=== PATIENT | female | born 1975 | race Caucasian/White ===

== ENCOUNTER 2018-07-31 20:40 | Emergency (ER) | payer BC, OTHER ==
[2018-07-31 20:57] VITALS: BP 117/86
[2018-07-31] MEDS ORDERED: Ondansetron 4 MG/2 ML SDV IVPUSH ONE (21:11)
[2018-07-31] MEDS ORDERED: HYDROmorphone 1 MG/ML Syringe IVPUSH STA (21:11)
[2018-07-31] MEDS ORDERED: Sodium Chloride 0.9% 10 ML Syringe FLUSH PRN (21:12)
[2018-07-31] MEDS ORDERED: Sodium Chloride 0.9% 1,000 ML IV SCH (21:15)
--- NOTE | 2018-07-31 21:19 | EDM.PDOC ---
ED HPI GENERAL MEDICAL PROBLEM - General Chief Complaint: Abdominal Pain Stated Complaint: abdominal pain Time Seen by Provider: 07/31/18 21:00 Source of Information: Reports: Patient, RN Notes Reviewed History Limitations: Reports: No Limitations - History of Present Illness INITIAL COMMENTS - FREE TEXT/NARRATIVE: Patient is a 43-year-old female who presents to the ED today for the evaluation of abdominal pain. She states that this pain awakened her from sleep at around 4 AM this morning and has continued throughout the day and has subsequently gotten worse. She states that the pain started around her bellybutton area and has migrated to her lower abdomen. She would rate this pain at a 7 or 8 out of 10 and kind of comes and goes in waves she states that curling up in a ball makes this feel better. She notes this pain to be a sharp, stabbing abdominal pain. She does note some pain into her low back as well. She denies any fever/ chills, dysuria, but does relate some urinary frequency. She states she does feel some mild nausea and did vomit one time around lunch after she had tried to eat some soup. She states that she had a normal bowel movement for her this a.m. as well. She denies any history of diverticulitis, she has not had any abdominal surgeries so she still retains her appendix, gallbladder, and she still has her uterus and both ovaries. She is still menstruating and does not have any issues related to this. She states that she did have some antacids for pain relief this morning. She notes that she recently got braces one week ago and has been eating a lot of soft type foods. Lower Abdominal Pain Score (Numeric/FACES): 8 - Related Data Allergies Allergy/AdvReac Type Severity Reaction Status Date / Time morphine Allergy Itching Verified 12/11/14 12:25 Home Meds: Home Meds Levothyroxine 75 mcg PO ACBREAKFAST 12/11/14 [History] Past Medical History Endocrine/Metabolic History: Reports: Other (See Below) Other Endocrine/Metabolic History: partail thyroidectomy - Past Surgical History Other Female Surgeries/Procedures: bladder surgery Social & Family History - Tobacco Use Smoking Status *Q: Never Smoker - Caffeine Use Caffeine Use: Reports: Soda - Recreational Drug Use Recreational Drug Use: No ED ROS GENERAL - Review of Systems Review Of Systems: See Below Constitutional: Reports: Decreased Appetite. Denies: Fever, Chills HEENT: Reports: No Symptoms Respiratory: Reports: No Symptoms Cardiovascular: Reports: No Symptoms Endocrine: Reports: No Symptoms GI/Abdominal: Reports: Abdominal Pain (lower), Decreased Appetite, Nausea, Vomiting. Denies: Constipation, Diarrhea : Reports: Frequency. Denies: Dysuria, Flank Pain, Urgency Musculoskeletal: Reports: Back Pain (lower back) Skin: Reports: No Symptoms Neurological: Reports: No Symptoms Psychiatric: Reports: No Symptoms Hematologic/Lymphatic: Reports: No Symptoms Immunologic: Reports: No Symptoms ED EXAM, GI/ABD - Physical Exam Exam: See Below Exam Limited By: No Limitations General Appearance: Alert, WD/WN, No Apparent Distress (Patient has her knees drawn up to her chest and appears to be in mild pain.) Eyes: Bilateral: Normal Appearance Ears: Normal External Exam Nose: Normal Inspection Throat/Mouth: Normal Inspection, Normal Lips, Normal Teeth, Normal Oropharynx, Normal Voice, No Airway Compromise Head: Atraumatic, Normocephalic Neck: Normal Inspection Respiratory/Chest: No Respiratory Distress, Lungs Clear, Normal Breath Sounds, No Accessory Muscle Use, Chest Non-Tender Cardiovascular: Normal Peripheral Pulses, Regular Rate, Rhythm, No Murmur GI/Abdominal Exam: Normal Bowel Sounds, Soft, No Organomegaly, No Distention, Tender (slightly more tender over her RLQ, but tender throughout lower abdomen.) , Mass (small lump noted around R inguinal ring, she noticed this around 1 week ago, but has not bothered her.). No: Guarding, Rigid, Rebound Back Exam: Normal Inspection, Full Range of Motion. No: CVA Tenderness (L), CVA Tenderness (R) Extremities: Normal Inspection, Normal Capillary Refill Neurological: Alert, Oriented, Normal Cognition, Normal Gait, No Motor/Sensory Deficits Psychiatric: Normal Affect, Normal Mood Skin Exam: Warm, Dry, Intact, Normal Color, No Rash Course - Vital Signs Last Recorded V/S: Last Vital Signs Temp 98.2 F 07/31/18 20:56 Pulse 100 07/31/18 20:56 Resp 20 07/31/18 20:56 BP 117/86 07/31/18 20:56 Pulse Ox 97 07/31/18 20:56 - Orders/Labs/Meds Orders: Active Orders 24 hr Category Date Time Status Peripheral IV Care [RC] . DIRECTED Care 07/31/18 21:12 Ordered Abdomen Pelvis w Cont [CT] Stat Exams 07/31/18 21:11 Ordered Sodium Chloride 0.9% [Normal Saline] 1,000 ml Med 07/31/18 21:15 Active IV ASDIRECTED Sodium Chloride 0.9% [Saline Flush] Med 07/31/18 21:12 Ordered 10 ml FLUSH ASDIRECTED PRN Peripheral IV Insertion Adult [OM.PC] Routine Oth 07/31/18 21:12 Ordered Medication Orders Sodium Chloride (Normal Saline) 1,000 mls @ 500 mls/hr IV ASDIRECTED BYRON Last Admin: 07/31/18 21:25 Dose: 500 mls/hr Sodium Chloride (Saline Flush) 10 ml FLUSH ASDIRECTED PRN PRN Reason: Keep Vein Open Last Admin: 07/31/18 21:28 Dose: 10 ml Labs: Laboratory Tests 07/31/18 07/31/18 07/31/18 Range/Units 21:15 21:15 21:20 WBC 7.19 (3.98-10.04) K/mm3 RBC 4.47 (3.98-5.22) M/mm3 Hgb 13.4 (11.2-15.7) gm/L Hct 39.7 (34.1-44.9) % MCV 88.8 (79.4-94.8) fl MCH 30.0 (25.6-32.2) pg MCHC 33.8 (32.2-35.5) g/dl RDW Std Deviation 39.8 (36.4-46.3) fL Plt Count 218 (182-369) K/mm3 MPV 10.6 (9.4-12.3) fl Neutrophils % (Manual) 57 (40-60) % Band Neutrophils % 0 (0-10) % Lymphocytes % (Manual) 26 (20-40) % Atypical Lymphs % 5 % Monocytes % (Manual) 7 (2-10) % Eosinophils % (Manual) 4 (0.7-5.8) % Basophils % (Manual) 1 (0.1-1.2) Platelet Estimate Adequate Plt Morphology Comment Normal RBC Morph Comment Normal Sodium 137 (136-145) mEq/L Potassium 3.4 L (3.5-5.1) mEq/L Chloride 102 (98-107) mEq/L Carbon Dioxide 24 (21-32) mEq/L Anion Gap 14.4 (5-15) BUN 11 (7-18) mg/dL Creatinine 1.0 (0.55-1.02) mg/dL Est Cr Clr Drug Dosing 70.54 mL/min Estimated GFR (MDRD) > 60 (>60) mL/min BUN/Creatinine Ratio 11.0 L (14-18) Glucose 92 (74-106) mg/dL Calcium 8.8 (8.5-10.1) mg/dL Total Bilirubin 0.5 (0.2-1.0) mg/dL AST 17 (15-37) U/L ALT 21 (14-59) U/L Alkaline Phosphatase 64 (46-116) U/L C-Reactive Protein < 0.2 (<1.0) mg/dL Total Protein 7.1 (6.4-8.2) g/dl Albumin 3.9 (3.4-5.0) g/dl Globulin 3.2 gm/dL Albumin/Globulin Ratio 1.2 (1-2) Urine Color Yellow (Yellow) Urine Appearance Clear (Clear) Urine pH 6.5 (5.0-8.0) Ur Specific Lindsay 1.020 (1.005-1.030) Urine Protein Negative (Negative) Urine Glucose (UA) Negative (Negative) Urine Ketones Trace H (Negative) Urine Occult Blood Negative (Negative) Urine Nitrite Negative (Negative) Urine Bilirubin Negative (Negative) Urine Urobilinogen 0.2 (0.2-1.0) Ur Leukocyte Esterase Negative (Negative) Urine RBC 0-5 (0-5) /hpf Urine WBC 0-5 (0-5) /hpf Ur Epithelial Cells 0-5 (0-5) /hpf Urine Bacteria Few (FEW) /hpf Urine Mucus Moderate H (FEW) /hpf Urine HCG, Qual (NEGATIVE) 07/31/18 Range/Units 21:20 WBC (3.98-10.04) K/mm3 RBC (3.98-5.22) M/mm3 Hgb (11.2-15.7) gm/L Hct (34.1-44.9) % MCV (79.4-94.8) fl MCH (25.6-32.2) pg MCHC (32.2-35.5) g/dl RDW Std Deviation (36.4-46.3) fL Plt Count (182-369) K/mm3 MPV (9.4-12.3) fl Neutrophils % (Manual) (40-60) % Band Neutrophils % (0-10) % Lymphocytes % (Manual) (20-40) % Atypical Lymphs % % Monocytes % (Manual) (2-10) % Eosinophils % (Manual) (0.7-5.8) % Basophils % (Manual) (0.1-1.2) Platelet Estimate Plt Morphology Comment RBC Morph Comment Sodium (136-145) mEq/L Potassium (3.5-5.1) mEq/L Chloride (98-107) mEq/L Carbon Dioxide (21-32) mEq/L Anion Gap (5-15) BUN (7-18) mg/dL Creatinine (0.55-1.02) mg/dL Est Cr Clr Drug Dosing mL/min Estimated GFR (MDRD) (>60) mL/min BUN/Creatinine Ratio (14-18) Glucose (74-106) mg/dL Calcium (8.5-10.1) mg/dL Total Bilirubin (0.2-1.0) mg/dL AST (15-37) U/L ALT (14-59) U/L Alkaline Phosphatase (46-116) U/L C-Reactive Protein (<1.0) mg/dL Total Protein (6.4-8.2) g/dl Albumin (3.4-5.0) g/dl Globulin gm/dL Albumin/Globulin Ratio (1-2) Urine Color (Yellow) Urine Appearance (Clear) Urine pH (5.0-8.0) Ur Specific Lindsay (1.005-1.030) Urine Protein (Negative) Urine Glucose (UA) (Negative) Urine Ketones (Negative) Urine Occult Blood (Negative) Urine Nitrite (Negative) Urine Bilirubin (Negative) Urine Urobilinogen (0.2-1.0) Ur Leukocyte Esterase (Negative) Urine RBC (0-5) /hpf Urine WBC (0-5) /hpf Ur Epithelial Cells (0-5) /hpf Urine Bacteria (FEW) /hpf Urine Mucus (FEW) /hpf Urine HCG, Qual Negative (NEGATIVE) Meds: Medications Generic Name Dose Route Start Last Admin Trade Name Freq PRN Reason Stop Dose Admin Sodium Chloride 1,000 mls @ 500 mls/hr 07/31/18 21:15 07/31/18 21:25 Normal Saline IV 500 mls/hr ASDIRECTED BYRON Administration Sodium Chloride 10 ml 07/31/18 21:12 07/31/18 21:28 Saline Flush FLUSH 10 ml ASDIRECTED PRN Administration Keep Vein Open Discontinued Medications Generic Name Dose Route Start Last Admin Trade Name Medardo PRN Reason Stop Dose Admin Hydromorphone HCl 1 mg 07/31/18 21:11 07/31/18 21:27 Dilaudid IVPUSH 07/31/18 21:12 1 mg ONETIME STA Administration Iopamidol 100 ml 07/31/18 22:20 07/31/18 22:37 Isovue-370 (76%) IV 07/31/18 22:21 100 ml ONETIME ONE Administration Ondansetron HCl 4 mg 07/31/18 21:11 07/31/18 21:25 Zofran IVPUSH 07/31/18 21:12 4 mg ONETIME ONE Administration - Re-Assessments/Exams Free Text/Narrative Re-Assessment/Exam: 07/31/18 21:26 Patient presents to the ED for evaluation of abdominal pain. Have ordered a CBC , CMP, UA with qualitative hCG, CRP, abdomen and pelvis CT with contrast and IV fluids with 1 mg IV Dilaudid and 4mg IV Zofran for initial management. 07/31/18 22:19 Patient's labs have returned and are essentially within normal limits, we will await CT results to see if this can provide any direction as to why she is having abdominal pain. 07/31/18 23:04 CT has returned and demonstrates no acute findings in her abdomen or pelvis. Etiology of her pain is undetermined at this time, she may have some stool that is trying to work it's way through the bowel. Will recommend she start herself on stool softeners and take OTC tylenol/ibuprofen for relief, and watchful waiting over the weekend. She will be educated on worrisome signs that would warrant a prompt return to the ED. Departure - Departure Time of Disposition: 23:19 Disposition: Home, Self-Care 01 Condition: Fair Clinical Impression: Lower abdominal pain - Discharge Information *PRESCRIPTION DRUG MONITORING PROGRAM REVIEWED*: No *COPY OF PRESCRIPTION DRUG MONITORING REPORT IN PATIENT MEGHAN: No Instructions: Abdominal Pain, Adult, [id number] Referrals: Rashmi Silvestre NP [Primary Care Provider] - Forms: ED Department Discharge Additional Instructions: You have been evaluated in the ED tonight for your lower abdominal pain. Your workup in the ER which included laboratory evaluation and radiologic evaluation of your abdomen was within normal limits. There is no definitive reason as to why you are having abdominal pain at this time. You do not have appendicitis, diverticulitis, urinary tract infection, or other infectious etiology that would be worrisome at this point in time. If however you should develop fever/chills or increasing/worsening pain of your lower abdomen please seek re-evaluation as this is cause for concern. You may take 500 mg Tylenol or 600 mg ibuprofen every 6 hours as needed for pain relief, do not take over 4000 mg of Tylenol or 3200 mg of ibuprofen in a 24 -hour time span. Recommend that you increase your oral fluid intake, and stick to a soft diet as tolerated. Please return to the ED if your symptoms change or worsen. - My Orders Last 24 Hours: My Active Orders 07/31/18 21:11 Abdomen Pelvis w Cont [CT] Stat 07/31/18 21:12 Peripheral IV Care [RC] . DIRECTED Sodium Chloride 0.9% [Saline Flush] 10 ml FLUSH ASDIRECTED PRN Peripheral IV Insertion Adult [OM.PC] Routine 07/31/18 21:15 Sodium Chloride 0.9% [Normal Saline] 1,000 ml IV ASDIRECTED - Assessment/Plan Last 24 Hours: My Active Orders 07/31/18 21:11 Abdomen Pelvis w Cont [CT] Stat 07/31/18 21:12 Peripheral IV Care [RC] . DIRECTED Sodium Chloride 0.9% [Saline Flush] 10 ml FLUSH ASDIRECTED PRN Peripheral IV Insertion Adult [OM.PC] Routine 07/31/18 21:15 Sodium Chloride 0.9% [Normal Saline] 1,000 ml IV ASDIRECTED
[2018-07-31] MEDS ORDERED: Iopamidol 755 Mg/ML 200 ML Bottle IV ONE (22:20)
--- NOTE | 2018-08-01 16:26 | CT ---
CT abdomen and pelvis Technique: Multiple axial sections were obtained from above the dome of the diaphragm inferiorly through the pubic symphysis. Intravenous and oral contrast was utilized. Delayed images were obtained through the bladder. Comparison: Previous CT abdomen and pelvis exam of 12/11/14. Findings: Visualized lung bases show nothing acute. Liver contains no focal abnormality. Gallbladder contains no calcified gallstones. Spleen appears within normal limits. Adrenal glands show no nodule. Kidneys show symmetric contrast enhancement without hydronephrosis or mass. Pancreas is within normal limits. Aorta shows no aneurysm. No retroperitoneal adenopathy or mesenteric abnormalities are seen. Multiple fibroids are seen within the uterus. Largest fibroid measures approximately 3.5 cm. No pelvic mass or adenopathy is seen. No free fluid or inflammatory change is seen. Appendix is felt to be visualized and is normal in size. Delayed images show contrast within the distal ureters and bladder. Bone window settings were reviewed which appear within normal limits for the patient's age. Impression: 1. Multiple uterine fibroids with largest measuring 3.5 cm. This represents an interval change from prior CT exam. 2. Nothing acute is identified on CT study of the abdomen and pelvis. Diagnostic code #2 I agree with preliminary report from [facility], finalized on 07/31/18, 11:59 PM Central Time
== END 2018-07-31 23:31 | disposition home or self-care (01) ==
LOC: JD.ED 20:40
DX: R10.30 Lower abdominal pain, unspecified (principal); Z88.5 Allergy status to narcotic agent
CPT/HCPCS: 36415; 74177; 80053; 81001; 81025; 85007; 85027; 86140; 96361; 96374; 96375; 99284; J1170; J2405; J7040; Q9967